=== PATIENT | male | born 1935 | race Caucasian/White ===

== ENCOUNTER 2018-06-13 01:06 | Inpatient (IN) | payer MEDICARE, OTHER ==
[2018-06-13] VITALS (8 sets, daily range): BP systolic 154–194; BP diastolic 45–72
[~2018-06-13] VITALS: Ht 167.6 cm; Wt 88.0 kg
[2018-06-13] MEDS ORDERED: ATROPINE 0.5 MG/5 ML DISP.SYRIN. ONE (01:13)
[2018-06-13] MEDS ORDERED: IV NORMAL SALINE 1,000ML 1,000 ML IV SCH (01:14)
--- NOTE | 2018-06-13 01:14 | ED.ADGEN ---
Past History Past Medical History: CAD, Cancer, Hypertension Past Medical History Hx Basal Cell Cancer, Prostate Past Surgical History: Angioplasty Past Surgical History Skin cancer removals Adult General Chief Complaint Chief Complaint ".. I ve been deep short of breath .. the last two days..more so tonight..." HPI HPI Patient is a 83 year old male who presents with above hx with complaints of dyspnea and bradycardia. Patient has history of hypertension and takes lisinopril , metoprolol x 20 yrs.. Patient did take his metoprolol tonight. Patient denies any recent heart problems. Patient has recently moved into the area from [place]. Patient denies any history of prior DVTs or pulmonary embolisms. Patient denies any history immunosuppression. Did have an episode of left lower chest wall yesterday. Pt. had two heart stents 18 yrs ago for MO. Pt. did smoke 30 yrs. ago.pipe. Review of Systems Review of Systems Constitutional: Denies fever or chills [] Eyes: Denies change in visual acuity, redness, or eye pain [] HENT: Denies nasal congestion or sore throat [] Respiratory: complaints of shortness of breath [] Cardiovascular: No additional information not addressed in HPI [] GI: Denies abdominal pain, nausea, vomiting, bloody stools or diarrhea [] : Denies dysuria or hematuria [] Musculoskeletal: Denies back pain or joint pain [] Integument: Denies rash or skin lesions [] Neurologic: Denies headache, focal weakness or sensory changes [] Endocrine: Denies polyuria or polydipsia [] All other systems were reviewed and found to be within normal limits, except as documented in this note. Family History Family History Non-contributory Current Medications Current Medications Current Medications Medications (Trade) Dose Ordered Sig/[facility] Start Time Stop Time Status Last Admin Dose Admin Aspirin (Children'S Aspirin) 324 mg 1X ONCE 06/13/18 01:15 06/13/18 01:35 DC 06/13/18 01:29 324 MG Atropine Sulfate (ATROPINE 0.5mg SYRINGE) 0.5 mg 1X ONCE 06/13/18 02:00 06/13/18 02:01 DC 06/13/18 01:43 0.5 MG Enoxaparin Sodium (Lovenox 100mg Syringe) 90 mg 1X ONCE 06/13/18 02:00 06/13/18 02:01 DC 06/13/18 01:36 90 MG Enoxaparin Sodium (Lovenox 150mg Syringe) 100 mg 1X ONCE 06/13/18 01:15 06/13/18 01:35 DC Nitroglycerin (Nitro-Bid Oint) 1 inch 1X ONCE 06/13/18 01:30 06/13/18 01:35 DC 06/13/18 01:23 1 INCH Sodium Chloride 1,000 ml @ 100 mls/hr Q10H 06/13/18 01:14 06/13/18 11:13 06/13/18 01:29 100 MLS/HR Allergies Allergies Allergies Coded Allergies Type Severity Reaction Last Updated Verified No Known Drug Allergies 06/13/18 No NKDA Physical Exam Physical Exam Constitutional: Moderately acute distress, non-toxic appearance. [] HENT: Normocephalic, atraumatic, bilateral external ears normal, oropharynx moist, no oral exudates, nose normal. Skin cancer surgeries scars Eyes: PERRLA, EOMI, conjunctiva normal, no discharge. [] Neck: Normal range of motion, no tenderness, supple, no stridor. [] Cardiovascular: 30's Ventricular Heart rate, regular rhythm, no murmur []third degree block on monitor. Occasional PVC Lungs & Thorax: Bilateral breath sounds equal with crackles throughout on auscultation [] Abdomen: Bowel sounds normal, soft, no tenderness, no masses, no pulsatile masses. [] Skin: Warm, dry, no erythema, no rash. []Old skin cancer scars-surgeries poor turgor Back: No tenderness, no CVA tenderness. [] Extremities: No tenderness, no cyanosis, no clubbing, ROM intact, has ankle edema. [] Arthritic changes Neurologic: Alert and oriented X 3, normal motor function, normal sensory function, no focal deficits noted. [] Psychologic: Affect anxious, judgement normal, mood normal. [] Current Patient Data Vital Signs Vital Signs Date Time Temp Pulse Resp B/P (MAP) Pulse Ox O2 Delivery O2 Flow Rate FiO2 06/13/18 01:56 33 34 150/43 (78) 96 NonRebreather Mask 15.0 06/13/18 01:06 99.0 Lab Results Laboratory Tests Test 06/13/18 01:15 White Blood Count 20.3 x10^3/uL (4.0-11.0) H Red Blood Count 4.67 x10^6/uL (4.30-5.70) Hemoglobin 14.9 g/dL (13.0-17.5) Hematocrit 44.9 % (39.0-53.0) Mean Corpuscular Volume 96 fL (79-100) Mean Corpuscular Hemoglobin 32 pg (25-35) Mean Corpuscular Hemoglobin Concent 33 g/dL (31-37) Red Cell Distribution Width 14.2 % (11.5-14.5) Platelet Count 188 x10^3/uL (140-400) Neutrophils (%) (Auto) 71 % (31-73) Lymphocytes (%) (Auto) 17 % (24-48) L Monocytes (%) (Auto) 11 % (0-9) H Eosinophils (%) (Auto) 0 % (0-3) Basophils (%) (Auto) 0 % (0-3) Neutrophils # (Auto) 14.5 x10^3uL (1.8-7.7) H Lymphocytes # (Auto) 3.4 x10^3/uL (1.0-4.8) Monocytes # (Auto) 2.3 x10^3/uL (0.0-1.1) H Eosinophils # (Auto) 0.1 x10^3/uL (0.0-0.7) Basophils # (Auto) 0.1 x10^3/uL (0.0-0.2) Segmented Neutrophils % 66 % (35-66) Band Neutrophils % 5 % (0-9) Lymphocytes % 25 % (24-48) Monocytes % 4 % (0-10) Platelet Estimate Adequate (ADEQUATE) Sodium Level 143 mmol/L (136-145) Potassium Level 5.2 mmol/L (3.5-5.1) H Chloride Level 106 mmol/L (98-107) Carbon Dioxide Level 29 mmol/L (21-32) Anion Gap 8 (6-14) Blood Urea Nitrogen 25 mg/dL (8-26) Creatinine 1.4 mg/dL (0.7-1.3) H Estimated GFR (Cockcroft-Gault) 48.4 Glucose Level 153 mg/dL (70-99) H Calcium Level 9.4 mg/dL (8.5-10.1) Magnesium Level 1.7 mg/dL (1.8-2.4) L Total Bilirubin 0.7 mg/dL (0.2-1.0) Direct Bilirubin 0.1 mg/dL (0.0-0.2) Aspartate Amino Transferase (AST) 34 U/L (15-37) Alanine Aminotransferase (ALT) 62 U/L (16-63) Alkaline Phosphatase 96 U/L (46-116) Creatine Kinase 70 U/L (39-308) Troponin I Quantitative 0.084 ng/mL (0-0.055) H BV-Spd-P-Type Natriuretic Peptide 6351 pg/mL (0-449) H Total Protein 7.5 g/dL (6.4-8.2) Albumin 3.5 g/dL (3.4-5.0) Lipase 90 U/L (73-393) EKG EKG My interpretation EKG shows a sinus bradycardia at 37. Occasional PVC. Has a prolonged ND interval , but atrial counts consistent with 3rd heart block.. Has RVH and intraventricular block. Radiology/Procedures Radiology/Procedures My interpretation of chest x-ray shows cardiomegaly. Degenerative joint changes. Increased cephalization consistent with CHF.[] Course & Med Decision Making Course & Med Decision Making Pertinent Labs and Imaging studies reviewed. (See chart for details) Heart Score 9-10 Pt. with meds had rapid improvement of dyspnea symptoms. However remained bradycardia- will start 5 jeremy dopamine. Pacing if become more symptomatic. CC 90 min. Discussed presentation, testing and tx. plan with Dr. Bernardo. Admit with Cardiology consult. [] Final Impression Final Impression 1. Third-degree AV block/ ventricular bradycardia 2. Accelerated hypertension[] 3. CHF -diastolic dysfunction BNP 6,351 4. Hypo-magnesium 1.7 5. Hyperkalemia 5.2 6. DM 153 7. Elevated Creat 1.4 8. Elevated Trop. 0.084 9. Hx. CADz- Stents x 2 - 18 yrs. ago Dragon Disclaimer Dragon Disclaimer This electronic medical record was generated, in whole or in part, using a voice recognition dictation system. Dragon Disclaimer This chart was dictated in whole or in part using Voice Recognition software in a busy, high-work load, and often noisy Emergency Department environment. It may contain unintended and wholly unrecognized errors or omissions. Discharge Summary Visit Information Final Diagnosis Problems Medical Problems: (1) Heart block atrioventricular Status: Acute (2) Heart block AV third degree Status: Acute Brief Hospital Course Allergies Allergies Coded Allergies Type Severity Reaction Last Updated Verified No Known Drug Allergies 06/13/18 No Vital Signs Vital Signs Date Time Temp Pulse Resp B/P (MAP) Pulse Ox O2 Delivery O2 Flow Rate FiO2 06/13/18 01:56 33 34 150/43 (78) 96 NonRebreather Mask 15.0 06/13/18 01:06 99.0 Lab Results Laboratory Tests Test 06/13/18 01:15 White Blood Count 20.3 x10^3/uL (4.0-11.0) Red Blood Count 4.67 x10^6/uL (4.30-5.70) Hemoglobin 14.9 g/dL (13.0-17.5) Hematocrit 44.9 % (39.0-53.0) Mean Corpuscular Volume 96 fL (79-100) Mean Corpuscular Hemoglobin 32 pg (25-35) Mean Corpuscular Hemoglobin Concent 33 g/dL (31-37) Red Cell Distribution Width 14.2 % (11.5-14.5) Platelet Count 188 x10^3/uL (140-400) Neutrophils (%) (Auto) 71 % (31-73) Lymphocytes (%) (Auto) 17 % (24-48) Monocytes (%) (Auto) 11 % (0-9) Eosinophils (%) (Auto) 0 % (0-3) Basophils (%) (Auto) 0 % (0-3) Neutrophils # (Auto) 14.5 x10^3uL (1.8-7.7) Lymphocytes # (Auto) 3.4 x10^3/uL (1.0-4.8) Monocytes # (Auto) 2.3 x10^3/uL (0.0-1.1) Eosinophils # (Auto) 0.1 x10^3/uL (0.0-0.7) Basophils # (Auto) 0.1 x10^3/uL (0.0-0.2) Segmented Neutrophils % 66 % (35-66) Band Neutrophils % 5 % (0-9) Lymphocytes % 25 % (24-48) Monocytes % 4 % (0-10) Platelet Estimate Adequate (ADEQUATE) Sodium Level 143 mmol/L (136-145) Potassium Level 5.2 mmol/L (3.5-5.1) Chloride Level 106 mmol/L (98-107) Carbon Dioxide Level 29 mmol/L (21-32) Anion Gap 8 (6-14) Blood Urea Nitrogen 25 mg/dL (8-26) Creatinine 1.4 mg/dL (0.7-1.3) Estimated GFR (Cockcroft-Gault) 48.4 Glucose Level 153 mg/dL (70-99) Calcium Level 9.4 mg/dL (8.5-10.1) Magnesium Level 1.7 mg/dL (1.8-2.4) Total Bilirubin 0.7 mg/dL (0.2-1.0) Direct Bilirubin 0.1 mg/dL (0.0-0.2) Aspartate Amino Transf (AST/SGOT) 34 U/L (15-37) Alanine Aminotransferase (ALT/SGPT) 62 U/L (16-63) Alkaline Phosphatase 96 U/L (46-116) Creatine Kinase 70 U/L (39-308) Troponin I Quantitative 0.084 ng/mL (0-0.055) GS-Ell-G-Type Natriuretic Peptide 6351 pg/mL (0-449) Total Protein 7.5 g/dL (6.4-8.2) Albumin 3.5 g/dL (3.4-5.0) Lipase 90 U/L (73-393) Brief Hospital Course Mr. Malagon is a 83 old male who presented with accelerated HTN, CHF, 3rd Heart Block. Admit to Dr. Bernardo- and cardiology consult. Discharge Information Condition at Discharge: Improved Dischare Medications Current Medications Atropine Sulfate (ATROPINE 0.5mg SYRINGE) 0.5 mg STK-MED ONCE .ROUTE ; Start at 01:13; Stop 06/13/18 at 01:14; Status DC Aspirin (Children'S Aspirin) 324 mg 1X ONCE PO Last administered on 06/13/18at 01:29; Admin Dose 324 MG; Start 06/13/18 at 01:15; Stop 06/13/18 at 01:35; Status DC Enoxaparin Sodium (Lovenox 150mg Syringe) 100 mg 1X ONCE SQ ; Start 06/13/18 at 01:15; Stop 06/13/18 at 01:35; Status DC Sodium Chloride 1,000 ml @ 100 mls/hr Q10H IV Last administered on 06/13/18at 01:29; Admin Dose 100 MLS/HR; Start 06/13/18 at 01:14; Stop 06/13/18 at 11:13 Atropine Sulfate (ATROPINE 0.5mg SYRINGE) 0.5 mg 1X ONCE IV Last administered on 06/13/18at 01:43; Admin Dose 0.5 MG; Start 06/13/18 at 02:00; Stop 06/13/18 at 02:01; Status DC Nitroglycerin (Nitro-Bid Oint) 1 inch 1X ONCE TP Last administered on at 01:23; Admin Dose 1 INCH; Start 06/13/18 at 01:30; Stop 06/13/18 at 01:35; Status DC Enoxaparin Sodium (Lovenox 100mg Syringe) 100 mg STK-MED ONCE SQ ; Start at 01:27; Stop 06/13/18 at 01:28; Status DC Enoxaparin Sodium (Lovenox 100mg Syringe) 90 mg 1X ONCE SQ Last administered on 06/13/18at 01:36; Admin Dose 90 MG; Start 06/13/18 at 02:00; Stop 06/13/18 at 02:01; Status DC THOMPSON SOW MD Jun 13, 2018 01:14
[2018-06-13] MEDS ORDERED: ENOXAPARIN ** NOTE DOSE ** SYRINGE SQ ONE ×3 (01:15→02:00)
[2018-06-13] MEDS ORDERED: ASPIRIN 81 MG TAB.CHEW PO ONE (01:15)
[2018-06-13] MEDS ORDERED: NITROGLYCERIN OINT 1 GM PACKET. TP ONE (01:30)
[2018-06-13] MEDS ORDERED: ATROPINE 0.5 MG/5 ML DISP.SYRIN. IV ONE ×2 (02:00→03:00)
[2018-06-13 02:03] LABS: ALBUMIN 3.5 g/dL (3.4-5.0); CALCIUM 9.4 mg/dL (8.5-10.1); CREATININE 1.4 mg/dL (0.7-1.3); DIRECT BILIRUBIN 0.1 mg/dL (0.0-0.2); GFR 48.4; MAGNESIUM 1.7 mg/dL (1.8-2.4); TOTAL BILIRUBIN 0.7 mg/dL (0.2-1.0); TOTAL PROTEIN 7.5 g/dL (6.4-8.2)
[2018-06-13 02:05] LABS: POTASSIUM 5.2 mmol/L (3.5-5.1)
[2018-06-13 02:16] LABS: BASO # 0.1 x10^3/uL (0.0-0.2); BASO % 0 % (0-3); EOS # 0.1 x10^3/uL (0.0-0.7); EOS % 0 % (0-3); HEMATOCRIT 44.9 % (39.0-53.0); HEMOGLOBIN 14.9 g/dL (13.0-17.5); LYMPH # 3.4 x10^3/uL (1.0-4.8); LYMPH % 17 % (24-48); MEAN CORPUSCULAR HEMOGLOBIN 32 pg (25-35); MEAN CORPUSCULAR HGB CONC 33 g/dL (31-37); MEAN CORPUSCULAR VOLUME 96 fL (79-100); MONO # 2.3 x10^3/uL (0.0-1.1); MONO % 11 % (0-9); NEUT # 14.5 x10^3uL (1.8-7.7); NEUT % 71 % (31-73); PLATELET COUNT 188 x10^3/uL (140-400); RED BLOOD COUNT 4.67 x10^6/uL (4.30-5.70); RED CELL DISTRIBUTION WIDTH 14.2 % (11.5-14.5); WHITE BLOOD COUNT 20.3 x10^3/uL (4.0-11.0)
[2018-06-13 02:29] LABS: % BANDS 5 % (0-9); % LYMPHS 25 % (24-48); % MONOS 4 % (0-10); % SEGS 66 % (35-66)
[2018-06-13 02:30] LABS: PLT ESTIMATE ADEQUATE (ADEQUATE)
[2018-06-13] MEDS ORDERED: FUROSEMIDE 40 MG/4 ML VIAL IVP ONE ×2 (02:30→06:00)
[2018-06-13] MEDS ORDERED: MORPHINE SULFATE 2 MG/ML DISP.SYRIN. IV PRN (02:30)
[2018-06-13] MEDS ORDERED: ONDANSETRON PF 4 MG/2 ML VIAL. IV PRN (02:30)
--- NOTE | 2018-06-13 02:51 | EKG ---
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
--- NOTE | 2018-06-13 02:56 | EKG ---
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
[2018-06-13] MEDS ORDERED: ANTI-COAG MONITOR BY PHARMACY. MC PRN (04:30)
[2018-06-13] MEDS ORDERED: IPRATRPIUM/ALBUTEROL 0.5/2.5MG 3 ML NEBU. ONE (04:40)
[2018-06-13] MEDS ORDERED: SUCR1TAB PO (05:43)
[2018-06-13] MEDS ORDERED: ATOR40TA59 PO (05:43)
[2018-06-13] MEDS ORDERED: LISI-334 PO (05:43)
[2018-06-13] MEDS ORDERED: METO50TA6 PO (05:43)
[2018-06-13] MEDS ORDERED: ASPI-630 PO (05:43)
[2018-06-13] MEDS ORDERED: PANT40TA5 PO (05:43)
[2018-06-13] MEDS ORDERED: ASCO10002 PO (05:43)
[2018-06-13] MEDS ORDERED: MULT1TAB6 PO (05:43)
[2018-06-13] MEDS ORDERED: FINA5TAB4 PO (05:43)
[2018-06-13] MEDS ORDERED: CYAN100072 PO (05:44)
[2018-06-13] MEDS ORDERED: OMEG-165 PO (05:44)
--- NOTE | 2018-06-13 07:42 | RAD ---
Portable chest, 06/13/2018: HISTORY: Chest pain, shortness of breath, bradycardia The heart is within normal limits in size. There are prominent epicardial fat pads. Moderate predominantly interstitial opacities have developed in both lungs. There is no evidence of pleural fluid. Moderate spurring is present in the spine. IMPRESSION: Moderate bilateral interstitial opacities have developed most compatible with interstitial pulmonary edema. Electronically signed by: Caleb Koch MD (06/13/2018 7:39 AM) [facility]
[2018-06-13] MEDS ORDERED: IPRATRPIUM/ALBUTEROL 0.5/2.5MG 3 ML NEBU. NEB SCH (08:00)
[2018-06-13] MEDS ORDERED: ENOXAPARIN ** NOTE DOSE ** SYRINGE SQ SCH (09:00)
[2018-06-13] MEDS ORDERED: ASPIRIN 81 MG TAB.CHEW PO SCH (09:00)
[2018-06-13] MEDS ORDERED: NITROGLYCERIN OINT 1 GM PACKET. TP SCH (09:00)
[2018-06-13 09:15] LABS: CALCIUM 9.3 mg/dL (8.5-10.1); CREATININE 1.5 mg/dL (0.7-1.3); GFR 44.7; POTASSIUM 4.8 mmol/L (3.5-5.1)
--- NOTE | 2018-06-13 09:22 | PDOC2 ---
DENI OBREGON TIMBER SURVEYOR 06/13/18 0922: CONSULT Date of Admission DATE: 06/13/18 TIME: 09:20 Reason for Consult: bradycardia Problem List Problems Medical Problems: (1) Heart block atrioventricular Status: Acute (2) Heart block AV third degree Status: Acute History of Present Illness Mr Malagon is an 83 year old male recently re located from [place]. He has a history of CAD with prior PCI/stents, hypertension, hyperlipidemia. He presents with complaints of shortness of breath. He reports 3 days ago while shoveling snow he became significantly short of breath with was unusual for him. He reports rest improved the symptoms. He normally walks a mile three days per week and last did this just over 1 week ago. He reports that over the last couple days he has been having episodes of lightheadedness, and dyspnea with some pressure in his chest. Most often with exertion but yesterday he became lightheaded while just sitting in a chair. He presented to the ED for evaluation and was found to be bradycardic and hypoxic. He is currently resting quietly without compliant. Tele demonstrates complete heart block with ventricular response of 30-38 bpm. He is on oxygen at 6 liters and maintaining an SaO2 of 90%. He denies any prior lung problems, recent illness or sick exposures. He denies fever or chills. He denies prior heart rhythm problems. Cardiovascular: CAD, HTN, IN, hyperipidemia Pulmonary: No pertinent hx GI: GERD Heme/Onc: Cancer (prostate s/p chemo and in remission) Hepatobiliary: No pertinent hx Psych: No pertinent hx Past Surgical History biopsy otherwise denies any surgeries Family History non contributory due to age Social History 1 glass of wine nightly, no illicit drugs, non smoker Current Medications Current Medications Atropine Sulfate (ATROPINE 0.5mg SYRINGE) 0.5 mg STK-MED ONCE .ROUTE ; Start at 01:13; Stop 06/13/18 at 01:14; Status DC Aspirin (Children'S Aspirin) 324 mg 1X ONCE PO Last administered on 06/13/18at 01:29; Start 06/13/18 at 01:15; Stop 06/13/18 at 01:35; Status DC Enoxaparin Sodium (Lovenox 150mg Syringe) 100 mg 1X ONCE SQ ; Start 06/13/18 at 01:15; Stop 06/13/18 at 01:35; Status DC Sodium Chloride 1,000 ml @ 100 mls/hr Q10H IV Last administered on 06/13/18at 01:29; Start 06/13/18 at 01:14; Stop 06/13/18 at 11:13 Atropine Sulfate (ATROPINE 0.5mg SYRINGE) 0.5 mg 1X ONCE IV Last administered on 06/13/18at 01:43; Start 06/13/18 at 02:00; Stop 06/13/18 at 02:01; Status DC Nitroglycerin (Nitro-Bid Oint) 1 inch 1X ONCE TP Last administered on at 01:23; Start 06/13/18 at 01:30; Stop 06/13/18 at 01:35; Status DC Enoxaparin Sodium (Lovenox 100mg Syringe) 100 mg STK-MED ONCE SQ ; Start at 01:27; Stop 06/13/18 at 01:28; Status DC Enoxaparin Sodium (Lovenox 100mg Syringe) 90 mg 1X ONCE SQ Last administered on 06/13/18at 01:36; Start 06/13/18 at 02:00; Stop 06/13/18 at 02:01; Status DC Furosemide (Lasix) 40 mg 1X ONCE IVP Last administered on 06/13/18at 02:18; Start 06/13/18 at 02:30; Stop 06/13/18 at 02:31; Status DC Ondansetron HCl (Zofran) 4 mg PRN Q4HRS PRN IV NAUSEA/VOMITING Last administered on 06/13/18at 08:20; Start 06/13/18 at 02:30; Stop 06/14/18 at 02:29 Morphine Sulfate (Morphine 2mg Syringe) 2 mg PRN Q2HR PRN IV PAIN; Start at 02:30; Stop 06/14/18 at 02:29 Albuterol/ Ipratropium (Duoneb) 3 ml RTQID NEB Last administered on 06/13/18at 05:52; Start 06/13/18 at 08:00; Stop 06/14/18 at 07:59 Enoxaparin Sodium (Lovenox 100mg Syringe) 90 mg Q12HR SQ ; Start 06/13/18 at 09: 00 Nitroglycerin (Nitro-Bid Oint) 1 inch TID TP ; Start 06/13/18 at 09:00 Aspirin (Children'S Aspirin) 81 mg DAILY PO ; Start 06/13/18 at 09:00 Furosemide (Lasix) 40 mg 1X ONCE IVP ; Start 06/13/18 at 06:00; Stop 06/13/18 at 06:01; Status DC Atropine Sulfate (ATROPINE 0.5mg SYRINGE) 0.5 mg 1X ONCE IV Last administered on 06/13/18at 02:49; Start 06/13/18 at 03:00; Stop 06/13/18 at 03:01; Status DC Dopamine HCl/ Dextrose 250 ml @ 6.634 mls/ hr 1X ONCE IV Last administered on 06/13/18at 05:52; Start 06/13/18 at 03:30; Stop 06/14/18 at 17:11 Info (Anti-Coagulation Monitoring By Pharmacy) 1 each PRN DAILY PRN MC SEE COMMENTS; Start 06/13/18 at 04:30 Albuterol/ Ipratropium (Duoneb) 3 ml STK-MED ONCE .ROUTE ; Start 06/13/18 at 04: 40; Stop 06/13/18 at 04:41; Status DC Active Scripts Active Reported B-12 (Cyanocobalamin (Vitamin B-12)) 1,000 Mcg Tablet 1,000 Mcg PO DAILY Fish Oil 1,000 mg Softgel ([place]-3S/Dha/Epa/Fish Oil) 1 Each Capsule 1 Each PO DAILY Centrum Complete Multivit Tab (Multivitamin/Iron/Folic Acid) 1 Each Tablet 1 Each PO DAILY Vitamin C (Ascorbic Acid) 1,000 Mg Tablet 1,000 Mg PO DAILY Aspirin 81 Mg Tab.chew 81 Mg PO QODAY Atorvastatin Calcium 40 Mg Tablet 1 Tab PO DAILY Finasteride 5 Mg Tablet 1 Tab PO DAILY Metoprolol Tartrate 50 Mg Tablet 1 Tab PO BID Lisinopril 20 Mg Tablet 1 Tab PO BID Sucralfate 1 Gm Tablet 1 Tab PO BID Pantoprazole Sodium 40 Mg Tablet.dr 1 Tab PO DAILY Allergies: Coded Allergies: No Known Drug Allergies (Unverified , 06/13/18) Review of System as per HPI or neg General: Alert, Oriented X3, Cooperative, No acute distress HEENT: Atraumatic, EOMI Lungs: Other (decreased bilateral bases with occ wheeze, few scattered crackles no rhonchi) Heart: Other (Bradycardic, HSM 2/6, no gallops, clicks or rubs) Abdomen: Normal bowel sounds, Soft, No tenderness Extremities: No cyanosis Neuro: Normal speech Psych/Mental Status: Mental status NL, Mood NL VITALS Vital Signs Date Time Temp Pulse Resp B/P (MAP) Pulse Ox O2 Delivery O2 Flow Rate FiO2 06/13/18 08:00 40 28 154/66 (95) 95 Nasal Cannula 6.0 06/13/18 04:04 98.6 Labs Laboratory Tests Test 06/13/18 01:15 06/13/18 02:05 06/13/18 05:42 White Blood Count 20.3 x10^3/uL (4.0-11.0) Red Blood Count 4.67 x10^6/uL (4.30-5.70) Hemoglobin 14.9 g/dL (13.0-17.5) Hematocrit 44.9 % (39.0-53.0) Mean Corpuscular Volume 96 fL (79-100) Mean Corpuscular Hemoglobin 32 pg (25-35) Mean Corpuscular Hemoglobin Concent 33 g/dL (31-37) Red Cell Distribution Width 14.2 % (11.5-14.5) Platelet Count 188 x10^3/uL (140-400) Neutrophils (%) (Auto) 71 % (31-73) Lymphocytes (%) (Auto) 17 % (24-48) Monocytes (%) (Auto) 11 % (0-9) Eosinophils (%) (Auto) 0 % (0-3) Basophils (%) (Auto) 0 % (0-3) Neutrophils # (Auto) 14.5 x10^3uL (1.8-7.7) Lymphocytes # (Auto) 3.4 x10^3/uL (1.0-4.8) Monocytes # (Auto) 2.3 x10^3/uL (0.0-1.1) Eosinophils # (Auto) 0.1 x10^3/uL (0.0-0.7) Basophils # (Auto) 0.1 x10^3/uL (0.0-0.2) Segmented Neutrophils % 66 % (35-66) Band Neutrophils % 5 % (0-9) Lymphocytes % 25 % (24-48) Monocytes % 4 % (0-10) Platelet Estimate Adequate (ADEQUATE) Sodium Level 143 mmol/L (136-145) 144 mmol/L (136-145) Potassium Level 5.2 mmol/L (3.5-5.1) 4.8 mmol/L (3.5-5.1) Chloride Level 106 mmol/L (98-107) 107 mmol/L (98-107) Carbon Dioxide Level 29 mmol/L (21-32) 25 mmol/L (21-32) Anion Gap 8 (6-14) 12 (6-14) Blood Urea Nitrogen 25 mg/dL (8-26) 27 mg/dL (8-26) Creatinine 1.4 mg/dL (0.7-1.3) 1.5 mg/dL (0.7-1.3) Estimated GFR (Cockcroft-Gault) 48.4 44.7 Glucose Level 153 mg/dL (70-99) 157 mg/dL (70-99) Calcium Level 9.4 mg/dL (8.5-10.1) 9.3 mg/dL (8.5-10.1) Magnesium Level 1.7 mg/dL (1.8-2.4) Total Bilirubin 0.7 mg/dL (0.2-1.0) Direct Bilirubin 0.1 mg/dL (0.0-0.2) Aspartate Amino Transf (AST/SGOT) 34 U/L (15-37) Alanine Aminotransferase (ALT/SGPT) 62 U/L (16-63) Alkaline Phosphatase 96 U/L (46-116) Creatine Kinase 70 U/L (39-308) Troponin I Quantitative 0.084 ng/mL (0-0.055) 0.285 ng/mL (0-0.055) NF-Skb-S-Type Natriuretic Peptide 6351 pg/mL (0-449) Total Protein 7.5 g/dL (6.4-8.2) Albumin 3.5 g/dL (3.4-5.0) Lipase 90 U/L (73-393) Prothrombin Time 10.2 SEC (9.4-11.4) Prothromb Time International Ratio 1.0 (0.9-1.1) Activated Partial Thromboplast Time 25 SEC (23-33) D-Dimer (Afshan) 0.81 mg/L (0.00-0.50) Images CXR - IMPRESSION: Moderate bilateral interstitial opacities have developed most compatible with interstitial pulmonary edema. EKG - RBBB, CHB Assessment/Plan 1. Complete heart block with associated respiratory failure and heart failure and trop elevation - stop BB, Oxygen at 6 liters maintaining sao2 at 90%, Lasix given in ED. Keep NPO, transfer to [facility] for PPM today. 2. CAD s/p prior PCI - post PPM, continue asa, check lipids and echo. Request prior records. 3. HTN - allow elevated pressure at this time. Resume home meds post ppm. Dopamine PRN until PPM for symptomatic patrice 4. HLD - check lipids and add statin as indicated. Transfer for ppm, followed by admission, diuresis, echo and consider MPI when pulm stable. ELISABETH WILKES MD 06/13/18 1418: CONSULT Assessment/Plan Patient seen and examined. Agree with CONSERVATION ENGINEER's assessment and plan. Agree with transfer to [facility] for permanent pacemaker implantation secondary to complete heart block and severe symptomatic bradycardia Continue diuresis for CHF, most probably acute on chronic diastolic Due to his history of coronary artery disease and abnormal EKG, we will consider ischemic evaluation at a later date Titrate oral antihypertensives after pacemaker implantation for better blood pressure control. Continue dopamine for chronotropic support for now. Thank you for your consultation DENI OBREGON APRN Jun 13, 2018 09:22 ELISABETH WILKES MD Jun 13, 2018 14:18
[2018-06-13 13:49] LABS: THYROID STIM HORMONE (TSH) 0.773 uIU/mL (0.358-3.740)
== END 2018-06-13 10:25 | disposition short-term general hospital (02) | DRG 291 ==
LOC: ER 01:06 → ICU 02:00
PROVIDERS: ADMIT Internal Medicine; ATTEND Internal Medicine
DX: I11.0 Hypertensive heart disease with heart failure (principal); J96.91 Respiratory failure, unspecified with hypoxia; I44.2 Atrioventricular block, complete; I50.33 Acute on chronic diastolic (congestive) heart failure; R07.89 Other chest pain; E78.5 Hyperlipidemia, unspecified; I25.10 Atherosclerotic heart disease of native coronary artery without angina pectoris; E83.42 Hypomagnesemia; E87.5 Hyperkalemia; E11.9 Type 2 diabetes mellitus without complications; R94.31 Abnormal electrocardiogram [ECG] [EKG]; K21.9 Gastro-esophageal reflux disease without esophagitis; Z85.828 Personal history of other malignant neoplasm of skin; Z92.21 Personal history of antineoplastic chemotherapy; Z95.5 Presence of coronary angioplasty implant and graft; I25.2 Old myocardial infarction
CPT/HCPCS: 36415; 71045; 80048; 80061; 80076; 82550; 83690; 83735; 83880; 84443; 84484; 85007; 85025; 85379; 85610; 85730; 87641; 93005; 94640; 96372; 96374; 96375; 99292; J0461; J1265; J1650; J1940; J2405; J7620; 99291-25; J7030

== ENCOUNTER → 2018-10-11 | Outpatient (CLI) | payer MEDICARE ==
[2018-06-13 10:04] VITALS: BP 169/51
[~2018-10-11] MED LIST: ASCO10002 PO; ASPI-630 PO; ATOR40TA59 PO; CYAN100072 PO; FINA5TAB4 PO; LISI-334 PO; METO50TA6 PO; MULT1TAB6 PO; OMEG-165 PO; PANT40TA5 PO; REGADENOSON 0.4 MG/5 ML DISP.SYRIN. IV ONE; SUCR1TAB PO
--- NOTE | 2018-10-11 11:55 | RAD ---
MR#: [id number] Date of Study: 10/11/2018 Ordering Physician: ELISABETH CARMICHAEL Referring Physician: MARIJA KULKARNI Tech: BALDO Armenta APPROVED REPORT Test Type: Pharmacological Stress Nurse/Tech: BALDO Armenta Test Indications: CAD Cardiac History: [place] 2000 2 stents at that time Medications: see EHR Medical History: see EHR Resting ECG: SR with intermittent AV pacing Resting Heart Rate: 60 bpm Resting Blood Pressure: 171/64mmHg Pretest Chest Pain: None Nurse/Tech Notes Consent: The procedure was explained to the patient in lay terms. Informed consent was witnessed. Omer eout was entered into Immediately. History and Stress Test performed by BALDO Armenta Pharm. Details Pharmacologic stress testing was performed using 0.4mg per 5ml of regadenoson given intravenously ove r 7-10 seconds. POST EXERCISE Max HR: 101 bpm Max Blood Pressure: 150/63mmHg Blood Pressure response to exercise: Normal blood pressure response during stress. Chest Pain: No. INTERPRETATION Stress EKG Conclusion: Baseline EKG showed atrial paced rhythm. Intermittent AV sequential pacing wit h nondiagnostic changes noted during stress. No other arrhythmias. Imaging Protocol IMAGE PROTOCOL: Rest Tc-99m/stress Tc-99m 1 day Rest: Stress: Viability: Radiopharm.Tc99m FcdzcewtvMf74a Sestamibi Mvku79nMx 33mCi Duration 15min. 12min. Img Date 10/11/2018 10/11/2018 Inj-Img [id number]. 60min. Rest Admin Site:IV - Right HandAdministrator: BALDO Armenta Stress Admin Site: IV - Right HandAdministrator: BALDO Armenta STRESS DATA End Diast. Vol.138.0mlAv. Heart Rate75.0bpm LVEDV index BSA3.0mlCardiac Output0.1L/min End Syst. Vol.36.0mlCO Index BSA7.7L/min LVESV index BSA1.0mlMyocardial Ofqy195.0g Eject. Bwnmhfmz78.0% Stress Rates Pk. Fill Rate2.94EDV/secLVtime Pk. Fill 123.41msec Pk. Empty Rate3.58ESV/secLVtime Pk. Yqnnz229.04msec /3 Pk. 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 Wall Motion Normal left ventricle systolic function with ejection fraction calculated at 74%. LV Perf. Quant 17 Seg. SSS4.00 17 Seg. SRS5.00 17 Seg. SDS1.00 Stress Defect Extent (% LAD)8.80Rest Defect Extent (% LAD)8.10Rev. Defect Extent (% LAD)3.10 Stress Defect Extent (% LCX) 3.80Rest Defect Extent (% LCX)7.50Rev. Defect Extent (% LCX)3.80 Stress Defect Extent (% RCA)8.90Rest Defect Extent (% RCA)0.00Rev. Defect Extent (% RCA)7.80 Stress Defect Extent (% BRENNAN)9.60Rest Defect Extent (% BRENNAN)7.60Rev. Defect Extent (% BRENNAN)5.20 Conclusion 1. Regadenoson cardioisotope stress test showed small apical wall infarct without any significant isc hemia. 2. Normal left ventricular systolic function with ejection fraction calculated at 74%. 3. Low risk for cardiac events. Signed by : Elisabeth Carmichael, Electronically Approved : 10/11/2018 11:54:44
--- NOTE | 2018-10-11 15:40 | RAD ---
MR#: [id number] Date of Study: 10/11/2018 Ordering Physician: ELISABETH WILKES, Referring Physician: ELISABETH WILKES, Tech: Yolanda Cardenas RDMS, RVT, RTR APPROVED REPORT Patient Location: OUT-PATIENT Laterality:Bilateral Indications Bruit Grayscale images of the bilateral carotid arteries demonstrate mild diffuse plaque. There is plaque l ocated at the right carotid bulb. This is moderate in nature. Spectral waveforms and color Doppler of the bilateral common carotid, internal carotid and vertebral arteries is unremarkable. The right external carotid artery demonstrates a greater than 70% stenosis based on velocity criteria. Normal ICA to CCA ratios bilaterally. Antegrade vertebral flow bilaterally. Critical Notification Critical Value: No <Conclusion> 1. No focal high-grade internal carotid artery stenosis. 2. Probable greater than 70% stenosis involving the right external carotid artery. Signed by : Henok Coronel, Electronically Approved : 10/11/2018 15:40:30
== END | disposition home or self-care (01) ==
LOC: NM 07:17
PROVIDERS: ATTEND Internal Medicine Cardiovascular Disease
DX: I65.21 Occlusion and stenosis of right carotid artery (principal); I21.9 Acute myocardial infarction, unspecified; I10 Essential (primary) hypertension; I25.10 Atherosclerotic heart disease of native coronary artery without angina pectoris; I25.2 Old myocardial infarction; Z95.0 Presence of cardiac pacemaker; Z79.01 Long term (current) use of anticoagulants; Z87.891 Personal history of nicotine dependence
CPT/HCPCS: 78452; 93017; 93880; A9500; J2785